=== PATIENT | male | born 1960 ===

== ENCOUNTER 2017-12-14 00:55 | Inpatient (IN) ==
[2017-12-14] MEDS ORDERED: hydrALAZINE 20 MG/1 ML VIAL IV ONE (01:47)
[2017-12-14] MEDS ORDERED: ONDANSETRON 4 MG/2 ML VIAL IV PRN (02:23)
[2017-12-14] MEDS ORDERED: DEXTROSE 50% 25 GM/50 ML VIAL IV PRN (02:23)
[2017-12-14] MEDS ORDERED: GLUCAGON 1 MG VIAL IM PRN (02:23)
[2017-12-14] MEDS ORDERED: CALCIUM GLUCONATE 2,000 MG in SODIUM CHLORIDE 0.9% 100 ML IV ONE (03:00)
[2017-12-14 03:23] LABS: Basophils # 0.1 10*3/uL (0.0-0.2); Basophils % 1.1 % (0.0-0.8); Eosinophils # 0.4 10*3/uL (0.0-0.87); Eosinophils % 4.9 % (0.00-10.9); Hematocrit 31.9 VOL% (42.0-52.0); Hemoglobin 10.7 GM/DL (14.0-18.0); Immature Granulocytes % 0.3 %; Immature Granulocytes Absolute 0.02 #; Lymphocytes # 3.3 10*3/uL (1.4-4.0); Lymphocytes % 42.2 % (21.2-54.2); Mean Corpuscular HGB Conc 33.5 GM/DL (32-36); Mean Corpuscular Hemoglobin 28 PG (27-34); Mean Corpuscular Volume 82.6 FL (87-102); Monocytes # 0.5 10*3/uL (0.11-0.8); Monocytes % 5.9 % (1.7-12.7); Neutrophils # 3.6 10*3/uL (1.4-7.4); Neutrophils % 45.6 % (38.7-73.9); Platelet Count 380 T/CUMM (130-400); Red Blood Count 3.86 MC/CUMM (3.8-5.5); Red Cell Distribution Width 14.2 % (9.3-17.3); White Blood Count 7.9 T/CUMM (4-12)
[2017-12-14] MEDS: LACTATED RINGERS 1,000 ML IV SCH ×2 (03:33→21:35)
[2017-12-14 03:46] LABS: Alanine Aminotransferase 13 U/L (16-61); Albumin 1.8 G/DL (3.4-5.0); Alkaline Phosphatase 134 U/L (45-117); Aspartate Amino Transferase 17 U/L (0-37); Bilirubin,Total < 0.39 MG/DL (0.2-1.0); Blood Urea Nitrogen 24 MG/DL (7-18); Calcium 5.9 MG/DL (8.5-10.1); Cholesterol 91 MG/DL (50-200); Glucose 165 MG/DL (74-106); HDL Cholesterol 28 MG/DL (40-60); Osmolality,Calculated 293.8 MOS/KG (273-304); Potassium 3.2 MMOL/L (3.5-5.1); Risk Ratio 3.25; Sodium 144 MMOL/L (136-145); Total Protein 4.9 G/DL (6.4-8.3); Triglycerides 92 MG/DL (2-150); VLDL CHOLESTEROL 18.4 MG/DL
[2017-12-14 03:48] LABS: Troponin I Only 0.028 NG/ML (0.00-0.045)
[2017-12-14 04:00] LABS: Apearance,Urine CLEAR (Clear); Bacteria,Urine Occasional /HPF (Few); Bilirubin,Urine Negative (Negative); Blood, Urine Small mg/dL (Negative); Glucose,Urine (UA) >=500 mg/dL (Negative); Hyaline Casts,Urine 2 /LPF (0-3); Ketones,Urine Negative (Negative); Nitrite,Urine Negative (Negative); Protein,Urine >=500 MG/DL; RBC,Urine 1 /HPF (0-4); Squamous Epithelial Cell,Urine Occasional /HPF (0-10); Urine Color Yellow (Yellow); Urine Specific Gravity 1.009 (1.001-1.035); Urine Urobilinogen < 2.0 EU/DL (0.2-1.0); WBC,Urine 2 /HPF (0-6)
[2017-12-14] MEDS ORDERED: ALBUMIN 25% 50 GM in PREMIX 1 EACH IV ONE (06:00)
[2017-12-14] MEDS: DOCUSATE SODIUM 100 MG CAPSULE PO SCH ×2 (08:56→21:33)
[2017-12-14] MEDS: PANTOPRAZOLE 40 MG TABLET PO SCH (08:56)
[2017-12-14] MEDS: POTASSIUM CHLORIDE 20 MEQ TABLET PO PRN ×2 (08:56→12:02)
[2017-12-14] MEDS: CARVEDILOL 25 MG TABLET PO SCH ×2 (08:57→21:33)
[2017-12-14] MEDS: INSULIN REGULAR 100 UNIT/ML SUBCUT SCH ×4 (08:57→21:52)
[2017-12-14] MEDS: ENOXAPARIN 30 MG/0.3 ML SYRINGE SUBCUT SCH (08:57)
[2017-12-14] MEDS ORDERED: DONEPEZIL 5 MG TABLET PO SCH (09:00)
[2017-12-14 10:14] LABS: Calcium 6.5 MG/DL (8.5-10.1); Osmolality,Calculated 290.8 MOS/KG (273-304); Potassium 3.5 MMOL/L (3.5-5.1)
[2017-12-14] MEDS ORDERED: MAGNESIUM SULF RIDER 2 GM in PREMIX 1 EACH IV ONE (11:09)
[2017-12-14] MEDS: MAGNESIUM SULF RIDER 2 GM in PREMIX 1 EACH IV ONE ×2 (14:44→15:49)
[2017-12-14] MEDS: DIVALPROEX ER 250 MG TABLET PO SCH (21:33)
[2017-12-15 05:41] LABS: Bilirubin,Total 0.6 MG/DL (0.2-1.0); Osmolality,Calculated 296.4 MOS/KG (273-304); Potassium 3.6 MMOL/L (3.5-5.1); Total Protein 4.9 G/DL (6.4-8.3)
[2017-12-15] MEDS: LACTATED RINGERS 1,000 ML IV SCH ×3 (07:37→17:54)
[2017-12-15] MEDS: INSULIN REGULAR 100 UNIT/ML SUBCUT SCH ×4 (07:48→22:37)
[2017-12-15] MEDS: PANTOPRAZOLE 40 MG TABLET PO SCH (08:08)
[2017-12-15] MEDS: DOCUSATE SODIUM 100 MG CAPSULE PO SCH ×2 (08:08→20:13)
[2017-12-15] MEDS: CARVEDILOL 25 MG TABLET PO SCH ×2 (08:08→20:13)
[2017-12-15] MEDS: ENOXAPARIN 30 MG/0.3 ML SYRINGE SUBCUT SCH (08:08)
[2017-12-15] MEDS: DIVALPROEX ER 250 MG TABLET PO SCH (20:13)
[2017-12-16] MEDS: LACTATED RINGERS 1,000 ML IV SCH ×2 (00:20→08:44)
[2017-12-16] MEDS: METOPROLOL TARTRATE 5 MG/5 ML VIAL IV SCH ×3 (06:01→17:31)
[2017-12-16 06:02] LABS: Potassium 3.8 MMOL/L (3.5-5.1)
[2017-12-16] MEDS: INSULIN REGULAR 100 UNIT/ML SUBCUT SCH ×4 (08:01→23:09)
[2017-12-16] MEDS: DOCUSATE SODIUM 100 MG CAPSULE PO SCH ×2 (09:30→23:08)
[2017-12-16] MEDS: ENOXAPARIN 30 MG/0.3 ML SYRINGE SUBCUT SCH (09:30)
[2017-12-16] MEDS: PANTOPRAZOLE 40 MG TABLET PO SCH (09:30)
[2017-12-16] MEDS: CARVEDILOL 25 MG TABLET PO SCH ×2 (09:30→23:08)
[2017-12-16] MEDS: DIVALPROEX ER 250 MG TABLET PO SCH (23:08)
[2017-12-16] MEDS: SIMVASTATIN 20 MG TABLET PO SCH (23:09)
[2017-12-17] MEDS: METOPROLOL TARTRATE 5 MG/5 ML VIAL IV SCH ×4 (00:49→18:41)
[2017-12-17 05:44] LABS: Calcium 6.2 MG/DL (8.5-10.1); Osmolality,Calculated 291.8 MOS/KG (273-304); Potassium 3.6 MMOL/L (3.5-5.1)
[2017-12-17] MEDS: INSULIN REGULAR 100 UNIT/ML SUBCUT SCH ×4 (07:28→21:31)
[2017-12-17] MEDS: DOCUSATE SODIUM 100 MG CAPSULE PO SCH ×2 (09:21→21:31)
[2017-12-17] MEDS: ENOXAPARIN 30 MG/0.3 ML SYRINGE SUBCUT SCH (09:21)
[2017-12-17] MEDS: CARVEDILOL 25 MG TABLET PO SCH ×2 (09:21→21:31)
[2017-12-17] MEDS: PANTOPRAZOLE 40 MG TABLET PO SCH (09:21)
[2017-12-17] MEDS: DIVALPROEX ER 250 MG TABLET PO SCH (21:31)
[2017-12-17] MEDS: SIMVASTATIN 20 MG TABLET PO SCH (21:32)
[2017-12-18] MEDS: METOPROLOL TARTRATE 5 MG/5 ML VIAL IV SCH ×3 (00:01→08:15)
[2017-12-18 06:02] LABS: Calcium 6.3 MG/DL (8.5-10.1); Osmolality,Calculated 292.7 MOS/KG (273-304); Potassium 3.9 MMOL/L (3.5-5.1)
[2017-12-18] MEDS: INSULIN REGULAR 100 UNIT/ML SUBCUT SCH ×4 (08:14→20:37)
[2017-12-18] MEDS: PANTOPRAZOLE 40 MG TABLET PO SCH (08:15)
[2017-12-18] MEDS: CARVEDILOL 25 MG TABLET PO SCH ×2 (08:15→20:37)
[2017-12-18] MEDS: ENOXAPARIN 30 MG/0.3 ML SYRINGE SUBCUT SCH (08:15)
[2017-12-18] MEDS: DOCUSATE SODIUM 100 MG CAPSULE PO SCH ×2 (08:15→20:37)
[2017-12-18 10:23] LABS: % Iron Saturation 42.9 % (18-50)
[2017-12-18 14:19] LABS: Creatinine,Urine Random 88 MG/DL; Total Protein,Urine Random 1103 MG/DL; Urea Nitrogen, Urine Random 407 MG/DL
[2017-12-18] MEDS: FAMOTIDINE 20 MG TABLET PO SCH (20:37)
[2017-12-18] MEDS: DIVALPROEX ER 250 MG TABLET PO SCH (20:37)
[2017-12-18] MEDS ORDERED: hydrALAZINE 25 MG TABLET PO ONE (23:30)
[2017-12-19] MEDS: INSULIN REGULAR 100 UNIT/ML SUBCUT SCH ×4 (07:52→20:49)
[2017-12-19] MEDS: ENOXAPARIN 30 MG/0.3 ML SYRINGE SUBCUT SCH (08:20)
[2017-12-19] MEDS: CARVEDILOL 25 MG TABLET PO SCH ×2 (08:20→20:26)
[2017-12-19] MEDS: DOCUSATE SODIUM 100 MG CAPSULE PO SCH ×2 (08:20→20:26)
[2017-12-19] MEDS: amLODIPine 10 MG TABLET PO SCH (16:08)
[2017-12-19] MEDS: FAMOTIDINE 20 MG TABLET PO SCH (20:26)
[2017-12-19] MEDS: DIVALPROEX ER 250 MG TABLET PO SCH (20:26)
[2017-12-20 06:10] LABS: Basophils # 0.1 10*3/uL (0.0-0.2); Basophils % 0.8 % (0.0-0.8); Eosinophils # 0.5 10*3/uL (0.0-0.87); Eosinophils % 6.7 % (0.00-10.9); Hematocrit 32.8 VOL% (42.0-52.0); Hemoglobin 11.1 GM/DL (14.0-18.0); Immature Granulocytes % 0.1 %; Immature Granulocytes Absolute 0.01 #; Lymphocytes # 2.5 10*3/uL (1.4-4.0); Lymphocytes % 33.1 % (21.2-54.2); Mean Corpuscular HGB Conc 33.8 GM/DL (32-36); Mean Corpuscular Hemoglobin 28 PG (27-34); Monocytes # 0.5 10*3/uL (0.11-0.8); Monocytes % 7.2 % (1.7-12.7); Neutrophils # 3.9 10*3/uL (1.4-7.4); Neutrophils % 52.1 % (38.7-73.9); Platelet Count 326 T/CUMM (130-400); Red Blood Count 3.95 MC/CUMM (3.8-5.5); Red Cell Distribution Width 14.2 % (9.3-17.3); White Blood Count 7.5 T/CUMM (4-12)
[2017-12-20 06:34] LABS: Calcium 6.4 MG/DL (8.5-10.1); Potassium 3.8 MMOL/L (3.5-5.1)
[2017-12-20] MEDS: INSULIN REGULAR 100 UNIT/ML SUBCUT SCH ×2 (09:17→11:49)
[2017-12-20] MEDS: ENOXAPARIN 30 MG/0.3 ML SYRINGE SUBCUT SCH (09:17)
[2017-12-20] MEDS: CARVEDILOL 25 MG TABLET PO SCH (09:17)
[2017-12-20] MEDS: DOCUSATE SODIUM 100 MG CAPSULE PO SCH (09:17)
[2017-12-20] MEDS: amLODIPine 10 MG TABLET PO SCH (09:17)
[2017-12-20] MEDS: POTASSIUM CHLORIDE 20 MEQ TABLET PO PRN (11:49)
[2017-12-20 11:50] VITALS: BP 140/76
[2017-12-20] MEDS ORDERED: CALCITRIOL 0.25 MCG CAPSULE PO SCH (12:00)
== END 2017-12-20 15:15 | disposition home health service (06) | DRG 682 ==
LOC: N.5E 00:57 → SUATTDRO 00:57
PROVIDERS: ADMIT Family Medicine; ATTEND Internal Medicine

== ENCOUNTER 2021-04-14 08:02 | Inpatient (IN) ==
[2021-04-14 08:44] LABS: Basophils # 0.1 10*3/uL (0.0-0.2); Basophils % 0.7 % (0.0-0.8); Eosinophils # 0.1 10*3/uL (0.0-0.87); Eosinophils % 0.6 % (0.00-10.9); Hemoglobin 9.3 GM/DL (14.0-18.0); Immature Granulocytes % 0.5 %; Immature Granulocytes Absolute 0.04 #; Lymphocytes # 1.3 10*3/uL (1.4-4.0); Lymphocytes % 15.9 % (21.2-54.2); Mean Platelet Volume 10.1 FL (9.6-12.0); Monocytes % 9.5 % (1.7-12.7); NRBC # 0.18 10*3/uL; Neutrophils % 72.8 % (38.7-73.9); Platelet Count 172 T/CUMM (130-400); Red Blood Count 2.97 MC/CUMM (3.8-5.5); Red Cell Distribution Width 17.5 % (9.3-17.3); White Blood Count 8.1 T/CUMM (4-12)
[2021-04-14 09:10] LABS: Albumin 3.1 G/DL (3.4-5.0); Bilirubin,Total 1.4 MG/DL (0.20-1.00); Osmolality,Calculated 277.2 MOS/KG (273-304); Potassium 3.6 MMOL/L (3.5-5.1); Total Protein 7.7 G/DL (6.4-8.2)
[2021-04-14] MEDS ORDERED: DEXTROSE 50% 25 GM/50 ML VIAL IV PRN ×2 (09:30)
[2021-04-14] MEDS ORDERED: ENOXAPARIN 30 MG/0.3 ML SYRINGE SUBCUT SCH (09:30)
[2021-04-14] MEDS ORDERED: ONDANSETRON 4 MG/2 ML VIAL IV PRN (09:30)
[2021-04-14] MEDS ORDERED: GLUCAGON 1 MG VIAL IM PRN ×2 (09:30)
[2021-04-14] MEDS: SODIUM CHLORIDE 0.9% 1,000 ML IV SCH (09:31)
[2021-04-14 09:33] LABS: Prolactin 48.2 ng/mL (2.1-17.7)
[2021-04-14 10:02] LABS: Hepatitis B Core IgM Quant 0.09 Index; Hepatitis B Surface Ag Quant < 0.10 Index; Hepatitis B Surface Ag Result Non-Reactive (NonReactive); Hepatitis C Virus Ab Quant 0.02 Index; Hepatitis C Virus Ab Result Non-Reactive (NonReactive)
[2021-04-14 10:06] LABS: Folate 16.41 NG/ML (5.38-24.0)
[2021-04-14] MEDS: HEPARIN 5,000 UNIT/1 ML VIAL SUBCUT SCH (10:09)
[2021-04-14 10:10] LABS: RPR Confirm - Less than 1 yr REACTIVE (Nonreactive)
[2021-04-14 10:39] LABS: Amorphous Crystals,Urine Occasional /HPF (Few); Bacteria,Urine Many /HPF (Few); Bilirubin,Urine Negative (Negative); Blood, Urine Small mg/dL (Negative); Glucose,Urine (UA) 50 mg/dL (Negative); Ketones,Urine Negative (Negative); Nitrite,Urine Negative (Negative); Protein,Urine >=500 MG/DL; Squamous Epithelial Cell,Urine Occasional /HPF (0-10); Urine Appearance CLOUDY (Clear); Urine Color Amber (Yellow); Urine Specific Gravity 1.019 (1.001-1.035); Urine Urobilinogen < 2.0 EU/DL (0.2-1.0)
[2021-04-14 10:42] LABS: Barbiturates Screen,Urine Negative (Negative); Benzodiazepines Screen,Urine Negative (Negative); Cannabinoid Screen,Urine Negative (Negative); Opiate Screen,Urine Negative (Negative); Phencyclidine Screen,Urine Negative (Negative)
[2021-04-14 11:25] LABS: Vitamin B12 > 2000 PG/ML (211-911)
[2021-04-14] MEDS: INSULIN LISPRO 100 UNIT/ML SUBCUT SCH ×3 (13:20→20:16)
[2021-04-14] MEDS: LACTULOSE 20 GM/30 ML UDCUP PO SCH (20:17)
[2021-04-14] MEDS: DIVALPROEX 500 MG TABLET PO SCH (20:17)
[2021-04-15] MEDS: SODIUM CHLORIDE 0.9% 1,000 ML IV SCH ×2 (06:46→16:25)
[2021-04-15 07:18] LABS: VLDL Cholesterol 29.2 MG/DL
[2021-04-15 07:20] LABS: Bilirubin,Total 1.5 MG/DL (0.20-1.00); Calcium 8.8 MG/DL (8.5-10.1); Osmolality,Calculated 280.5 MOS/KG (273-304); Total Protein 7.4 G/DL (6.4-8.2)
[2021-04-15] MEDS ORDERED: PANTOPRAZOLE 40 MG TABLET PO SCH (09:00)
[2021-04-15] MEDS: INSULIN LISPRO 100 UNIT/ML SUBCUT SCH ×3 (10:10→16:25)
[2021-04-15] MEDS: LACTULOSE 20 GM/30 ML UDCUP PO SCH (10:22)
[2021-04-15] MEDS: DIVALPROEX 500 MG TABLET PO SCH (10:22)
[2021-04-15] MEDS: HEPARIN 5,000 UNIT/1 ML VIAL SUBCUT SCH (10:22)
[2021-04-15 15:56] VITALS: BP 162/57
== END 2021-04-15 18:04 | disposition home health service (06) | DRG 100 ==
LOC: EDUNIT# → N.ED 08:02 → N.EDINP 09:07 → N.5E 10:42
PROVIDERS: ADMIT Internal Medicine; ATTEND Internal Medicine

== ENCOUNTER 2022-01-04 10:14 | Inpatient (IN) ==
[2022-01-04 10:45] LABS: Basophils % 0.4 % (0.0-0.8); Eosinophils # 0.1 10*3/uL (0.0-0.87); Eosinophils % 1.3 % (0.00-10.9); Hematocrit 24.8 VOL% (42.0-52.0); Hemoglobin 7.6 GM/DL (14.0-18.0); Immature Granulocytes % 0.9 %; Immature Granulocytes Absolute 0.09 #; Lymphocytes % 9.7 % (21.2-54.2); Mean Corpuscular HGB Conc 30.6 GM/DL (32-36); Mean Corpuscular Volume 93.6 FL (87-102); Monocytes # 1.1 10*3/uL (0.11-0.8); Monocytes % 10.9 % (1.7-12.7); Neutrophils % 76.8 % (38.7-73.9); Platelet Count 415 T/CUMM (130-400); Red Blood Count 2.65 MC/CUMM (3.8-5.5); Red Cell Distribution Width 18.5 % (9.3-17.3); White Blood Count 10.3 T/CUMM (4-12)
[2022-01-04 11:06] LABS: Alanine Aminotransferase < 9 U/L (16-61); Albumin 1.6 G/DL (3.4-5.0); Alkaline Phosphatase 118 U/L (45-117); Aspartate Amino Transferase 12 U/L (0-37); Bilirubin,Total < 0.39 MG/DL (0.20-1.00); Blood Urea Nitrogen 83 MG/DL (7-18); Calcium 9.3 MG/DL (8.5-10.1); Carbon Dioxide 28 MMOL/L (21-32); Chloride 96 MMOL/L (98-107); Estimated Glom Filtration Rate 8 ML/MIN; Glucose 97 MG/DL (74-106); Osmolality,Calculated 288.5 MOS/KG (273-304); Potassium 4.2 MMOL/L (3.5-5.1); Sodium 132 MMOL/L (136-145); Total Protein 7.9 G/DL (6.4-8.2)
[2022-01-04] MEDS ORDERED: ONDANSETRON 4 MG/2 ML VIAL IV PRN (12:31)
[2022-01-04] MEDS ORDERED: GLUCAGON 1 MG VIAL IM PRN (12:31)
[2022-01-04] MEDS ORDERED: hydrALAZINE 20 MG/1 ML VIAL IV PRN (12:31)
[2022-01-04] MEDS ORDERED: EPOETIN ALFA-EPBX 10,000 UNIT/ML VIAL SUBCUT SCH (12:45)
[2022-01-04] MEDS ORDERED: DEXTROSE 10% 250 ML BAG IV PRN (13:06)
[2022-01-04] MEDS ORDERED: VANCOMYCIN INJ 500 MG in SODIUM CHLORIDE 0.9% 250 ML IV PRN (14:17)
[2022-01-04] MEDS: PIPERACILLIN/TAZOBACTAM 3,375 MG in SODIUM CHLORIDE 0.9% 100 ML IV SCH (15:54)
[2022-01-04] MEDS: VANCOMYCIN INJ 1,750 MG in SODIUM CHLORIDE 0.9% 500 ML IV ONE ×2 (16:20→17:30)
[2022-01-04] MEDS ORDERED: VANCOMYCIN INJ 1,750 MG in SODIUM CHLORIDE 0.9% 500 ML IV ONE (17:00)
[2022-01-04] MEDS: INSULIN LISPRO 100 UNIT/ML SUBCUT SCH ×2 (17:33→22:28)
[2022-01-04] MEDS: carvediloL 6.25 MG TABLET PO SCH (17:34)
[2022-01-04] MEDS: SEVELAMER CARBONATE 800 MG TABLET PO SCH (17:34)
[2022-01-04] MEDS: VANCOMYCIN 125 MG CAPSULE PO SCH ×2 (17:34→22:47)
[2022-01-04] MEDS: DIVALPROEX 250 MG TABLET PO SCH (22:20)
[2022-01-04] MEDS: GABAPENTIN 100 MG CAPSULE PO SCH (22:20)
[2022-01-05] MEDS: VANCOMYCIN 50 MG/ML 60 ML/BOTTLE PO SCH ×5 (00:22→21:21)
[2022-01-05] MEDS: PIPERACILLIN/TAZOBACTAM 3,375 MG in SODIUM CHLORIDE 0.9% 100 ML IV SCH ×2 (02:57→17:30)
[2022-01-05 05:07] LABS: Basophils # 0.1 10*3/uL (0.0-0.2); Basophils % 0.5 % (0.0-0.8); Eosinophils # 0.1 10*3/uL (0.0-0.87); Eosinophils % 1.1 % (0.00-10.9); Hematocrit 25.3 VOL% (42.0-52.0); Hemoglobin 7.6 GM/DL (14.0-18.0); Immature Granulocytes % 0.7 %; Immature Granulocytes Absolute 0.07 #; Lymphocytes # 1.5 10*3/uL (1.4-4.0); Mean Corpuscular Volume 94.8 FL (87-102); Mean Platelet Volume 8.8 FL (9.6-12.0); Monocytes # 1.1 10*3/uL (0.11-0.8); Monocytes % 11.1 % (1.7-12.7); Neutrophils % 71.6 % (38.7-73.9); Platelet Count 402 T/CUMM (130-400); Red Blood Count 2.67 MC/CUMM (3.8-5.5); Red Cell Distribution Width 18.7 % (9.3-17.3); White Blood Count 9.7 T/CUMM (4-12)
[2022-01-05 05:36] LABS: Free T4 (Free Thyroxine) 1.06 NG/DL (0.76-1.46); Thyroid Stimulating Hormone 10.8 uIU/ml (0.358-3.74)
[2022-01-05 05:41] LABS: % Iron Saturation 15.7 % (18-50); Ferritin 3091.9 ng/mL (26-388)
[2022-01-05 05:46] LABS: Alanine Aminotransferase < 9 U/L (16-61); Albumin 1.5 G/DL (3.4-5.0); Alkaline Phosphatase 105 U/L (45-117); Aspartate Amino Transferase 12 U/L (0-37); Blood Urea Nitrogen 92 MG/DL (7-18); Calcium 8.5 MG/DL (8.5-10.1); Carbon Dioxide 21 MMOL/L (21-32); Chloride 101 MMOL/L (98-107); Estimated Glom Filtration Rate 7 ML/MIN; Glucose 77 MG/DL (74-106); Osmolality,Calculated 294.2 MOS/KG (273-304); Potassium 4.8 MMOL/L (3.5-5.1); Sodium 134 MMOL/L (136-145); Total Protein 7.6 G/DL (6.4-8.2)
[2022-01-05] MEDS: PANTOPRAZOLE 40 MG TABLET PO SCH (10:14)
[2022-01-05] MEDS: CLOPIDOGREL 75 MG TABLET PO SCH (10:14)
[2022-01-05] MEDS: ASPIRIN EC 81 MG TABLET PO SCH (10:14)
[2022-01-05] MEDS: MULTIVITAMIN (BEROCCA) TABLET PO SCH (10:14)
[2022-01-05] MEDS: carvediloL 6.25 MG TABLET PO SCH ×2 (10:15→17:42)
[2022-01-05] MEDS: SEVELAMER CARBONATE 800 MG TABLET PO SCH ×3 (10:17→17:42)
[2022-01-05] MEDS: INSULIN LISPRO 100 UNIT/ML SUBCUT SCH ×4 (11:22→22:41)
[2022-01-05] MEDS: DIVALPROEX 250 MG TABLET PO SCH ×2 (11:46→21:21)
[2022-01-05] MEDS: ATORVASTATIN 40 MG TABLET PO SCH (11:46)
[2022-01-05] MEDS ORDERED: VANCOMYCIN INJ 500 MG in SODIUM CHLORIDE 0.9% 250 ML IV ONE (12:30)
[2022-01-05] MEDS: MENTHOL/ZINC OXIDE OINT 71 GM JAR TOP SCH ×2 (17:30→21:20)
[2022-01-05] MEDS ORDERED: VANCOMYCIN INJ 500 MG in SODIUM CHLORIDE 0.9% 100 ML IV ONE (20:00)
[2022-01-05] MEDS: GABAPENTIN 100 MG CAPSULE PO SCH (21:20)
[2022-01-06] MEDS: PIPERACILLIN/TAZOBACTAM 3,375 MG in SODIUM CHLORIDE 0.9% 100 ML IV SCH ×2 (01:38→16:14)
[2022-01-06 06:17] LABS: Basophils % 0.3 % (0.0-0.8); Eosinophils # 0.1 10*3/uL (0.0-0.87); Eosinophils % 1.2 % (0.00-10.9); Hematocrit 23.5 VOL% (42.0-52.0); Hemoglobin 7.2 GM/DL (14.0-18.0); Immature Granulocytes % 0.9 %; Immature Granulocytes Absolute 0.09 #; Lymphocytes # 1.2 10*3/uL (1.4-4.0); Lymphocytes % 11.5 % (21.2-54.2); Mean Corpuscular HGB Conc 30.6 GM/DL (32-36); Mean Corpuscular Volume 94.8 FL (87-102); Mean Platelet Volume 8.6 FL (9.6-12.0); Monocytes # 1.2 10*3/uL (0.11-0.8); Neutrophils % 75.1 % (38.7-73.9); Platelet Count 378 T/CUMM (130-400); Red Blood Count 2.48 MC/CUMM (3.8-5.5); Red Cell Distribution Width 18.7 % (9.3-17.3); White Blood Count 10.4 T/CUMM (4-12)
[2022-01-06 06:32] LABS: Calcium 8.1 MG/DL (8.5-10.1); Potassium 4.2 MMOL/L (3.5-5.1)
[2022-01-06] MEDS ORDERED: CLINDAMYCIN INJ 900 MG/50 ML PREMIX IV ONE (10:09)
[2022-01-06] MEDS: INSULIN LISPRO 100 UNIT/ML SUBCUT SCH ×4 (10:23→20:24)
[2022-01-06] MEDS: ASPIRIN EC 81 MG TABLET PO SCH (10:26)
[2022-01-06] MEDS: MULTIVITAMIN (BEROCCA) TABLET PO SCH (10:26)
[2022-01-06] MEDS: SEVELAMER CARBONATE 800 MG TABLET PO SCH ×3 (10:26→17:24)
[2022-01-06] MEDS: carvediloL 6.25 MG TABLET PO SCH ×2 (10:26→17:24)
[2022-01-06] MEDS: VANCOMYCIN 50 MG/ML 60 ML/BOTTLE PO SCH ×4 (10:27→20:49)
[2022-01-06] MEDS: ATORVASTATIN 40 MG TABLET PO SCH (10:27)
[2022-01-06] MEDS: PANTOPRAZOLE 40 MG TABLET PO SCH (10:27)
[2022-01-06] MEDS: DIVALPROEX 250 MG TABLET PO SCH ×2 (10:27→20:50)
[2022-01-06] MEDS: CLOPIDOGREL 75 MG TABLET PO SCH (10:27)
[2022-01-06] MEDS ORDERED: fentaNYL 100 MCG/2 ML VIAL ONE (11:15)
[2022-01-06] MEDS ORDERED: SODIUM CHLORIDE 0.9% 250 ML IV SCH (11:30)
[2022-01-06] MEDS ORDERED: propofoL 200 MG/20 ML VIAL IV ONE (11:41)
[2022-01-06] MEDS ORDERED: LIDOCAINE 2% 5 ML VIAL ONE (11:41)
[2022-01-06] MEDS: MENTHOL/ZINC OXIDE OINT 71 GM JAR TOP SCH ×2 (16:13→20:49)
[2022-01-06] MEDS: GABAPENTIN 100 MG CAPSULE PO SCH (20:50)
[2022-01-07] MEDS: PIPERACILLIN/TAZOBACTAM 3,375 MG in SODIUM CHLORIDE 0.9% 100 ML IV SCH ×2 (01:51→14:58)
[2022-01-07 06:10] LABS: Basophils % 0.4 % (0.0-0.8); Eosinophils # 0.1 10*3/uL (0.0-0.87); Eosinophils % 1.3 % (0.00-10.9); Hematocrit 24.5 VOL% (42.0-52.0); Hemoglobin 7.6 GM/DL (14.0-18.0); Immature Granulocytes % 0.6 %; Immature Granulocytes Absolute 0.06 #; Lymphocytes # 1.3 10*3/uL (1.4-4.0); Lymphocytes % 13.7 % (21.2-54.2); Mean Corpuscular Volume 96.1 FL (87-102); Mean Platelet Volume 8.8 FL (9.6-12.0); Monocytes % 10.6 % (1.7-12.7); Neutrophils % 73.4 % (38.7-73.9); Platelet Count 380 T/CUMM (130-400); Red Blood Count 2.55 MC/CUMM (3.8-5.5); White Blood Count 9.4 T/CUMM (4-12)
[2022-01-07 06:25] LABS: Calcium 8.4 MG/DL (8.5-10.1); Osmolality,Calculated 288.8 MOS/KG (273-304); Potassium 4.4 MMOL/L (3.5-5.1)
[2022-01-07] MEDS: INSULIN LISPRO 100 UNIT/ML SUBCUT SCH ×4 (08:12→22:02)
[2022-01-07] MEDS ORDERED: GLUCAGON 1 MG VIAL IM PRN (12:49)
[2022-01-07] MEDS ORDERED: DEXTROSE 10% 250 ML BAG IV PRN (12:51)
[2022-01-07] MEDS: PANTOPRAZOLE 40 MG TABLET PO SCH (14:52)
[2022-01-07] MEDS: ATORVASTATIN 40 MG TABLET PO SCH (14:52)
[2022-01-07] MEDS: carvediloL 6.25 MG TABLET PO SCH ×2 (14:52→16:57)
[2022-01-07] MEDS: DIVALPROEX 250 MG TABLET PO SCH ×2 (14:52→21:24)
[2022-01-07] MEDS: ASPIRIN EC 81 MG TABLET PO SCH (14:52)
[2022-01-07] MEDS: CLOPIDOGREL 75 MG TABLET PO SCH (14:52)
[2022-01-07] MEDS: MULTIVITAMIN (BEROCCA) TABLET PO SCH (14:52)
[2022-01-07] MEDS: SEVELAMER CARBONATE 800 MG TABLET PO SCH ×3 (14:52→16:57)
[2022-01-07] MEDS: VANCOMYCIN 50 MG/ML 60 ML/BOTTLE PO SCH ×2 (14:53→18:51)
[2022-01-07] MEDS: MENTHOL/ZINC OXIDE OINT 71 GM JAR TOP SCH ×2 (15:12→21:25)
[2022-01-07] MEDS: VANCOMYCIN 125 MG CAPSULE PO SCH ×2 (16:57→21:24)
[2022-01-07] MEDS ORDERED: VANCOMYCIN INJ 500 MG in SODIUM CHLORIDE 0.9% 250 ML IV ONE (17:00)
[2022-01-07] MEDS: SODIUM HYPOCHLORITE 0.25% IRRIG 473 ML BOTTLE TOP SCH (17:03)
[2022-01-07] MEDS: ACETAMINOPHEN 325 MG TABLET PO PRN (21:24)
[2022-01-07] MEDS: GABAPENTIN 100 MG CAPSULE PO SCH (21:24)
[2022-01-07] MEDS: MELATONIN 3 MG TABLET PO PRN (21:24)
[2022-01-08] MEDS: LOPERAMIDE 2 MG CAPSULE PO PRN ×2 (02:30→08:45)
[2022-01-08] MEDS: PIPERACILLIN/TAZOBACTAM 3,375 MG in SODIUM CHLORIDE 0.9% 100 ML IV SCH ×2 (02:30→14:05)
[2022-01-08 05:49] LABS: Osmolality,Calculated 279.8 MOS/KG (273-304); Potassium 4.1 MMOL/L (3.5-5.1)
[2022-01-08 06:21] LABS: Basophils # 0.1 10*3/uL (0.0-0.2); Basophils % 0.7 % (0.0-0.8); Eosinophils # 0.2 10*3/uL (0.0-0.87); Eosinophils % 1.4 % (0.00-10.9); Hematocrit 23.7 VOL% (42.0-52.0); Immature Granulocytes % 0.9 %; Lymphocytes # 1.5 10*3/uL (1.4-4.0); Mean Corpuscular HGB Conc 33.8 GM/DL (32-36); Mean Corpuscular Volume 101.7 FL (87-102); Mean Platelet Volume 8.8 FL (9.6-12.0); Monocytes # 1.2 10*3/uL (0.11-0.8); Monocytes % 10.9 % (1.7-12.7); Neutrophils % 73.1 % (38.7-73.9); Platelet Count 401 T/CUMM (130-400); Red Blood Count 2.33 MC/CUMM (3.8-5.5); Red Cell Distribution Width 22.7 % (9.3-17.3); White Blood Count 11.2 T/CUMM (4-12)
[2022-01-08 06:26] LABS: Hypochromia Slight; Platelet Estimate Normal
[2022-01-08] MEDS: INSULIN LISPRO 100 UNIT/ML SUBCUT SCH ×4 (08:33→20:16)
[2022-01-08] MEDS: ASPIRIN EC 81 MG TABLET PO SCH (08:45)
[2022-01-08] MEDS: DIVALPROEX 250 MG TABLET PO SCH ×2 (08:45→21:09)
[2022-01-08] MEDS: MULTIVITAMIN (BEROCCA) TABLET PO SCH (08:45)
[2022-01-08] MEDS: SEVELAMER CARBONATE 800 MG TABLET PO SCH ×3 (08:45→16:21)
[2022-01-08] MEDS: CLOPIDOGREL 75 MG TABLET PO SCH (08:45)
[2022-01-08] MEDS: VANCOMYCIN 125 MG CAPSULE PO SCH ×4 (08:45→21:09)
[2022-01-08] MEDS: ATORVASTATIN 40 MG TABLET PO SCH (08:46)
[2022-01-08] MEDS: PANTOPRAZOLE 40 MG TABLET PO SCH (08:46)
[2022-01-08] MEDS: MENTHOL/ZINC OXIDE OINT 71 GM JAR TOP SCH ×2 (08:46→21:09)
[2022-01-08] MEDS: carvediloL 6.25 MG TABLET PO SCH ×2 (08:46→16:21)
[2022-01-08] MEDS: SODIUM HYPOCHLORITE 0.25% IRRIG 473 ML BOTTLE TOP SCH (08:46)
[2022-01-08] MEDS: MELATONIN 3 MG TABLET PO PRN (21:09)
[2022-01-08] MEDS: GABAPENTIN 100 MG CAPSULE PO SCH (21:09)
[2022-01-09] MEDS: PIPERACILLIN/TAZOBACTAM 3,375 MG in SODIUM CHLORIDE 0.9% 100 ML IV SCH ×2 (01:50→21:13)
[2022-01-09 05:30] LABS: Basophils % 0.4 % (0.0-0.8); Eosinophils # 0.1 10*3/uL (0.0-0.87); Eosinophils % 1.4 % (0.00-10.9); Hematocrit 18.4 VOL% (42.0-52.0); Immature Granulocytes % 0.5 %; Immature Granulocytes Absolute 0.05 #; Lymphocytes # 0.9 10*3/uL (1.4-4.0); Lymphocytes % 9.9 % (21.2-54.2); Mean Corpuscular HGB Conc 40.2 GM/DL (32-36); Mean Corpuscular Volume 104.5 FL (87-102); Mean Platelet Volume 8.8 FL (9.6-12.0); Monocytes # 0.7 10*3/uL (0.11-0.8); Monocytes % 7.4 % (1.7-12.7); Neutrophils % 80.4 % (38.7-73.9); Platelet Count 380 T/CUMM (130-400); Red Cell Distribution Width 23.9 % (9.3-17.3); White Blood Count 9.5 T/CUMM (4-12)
[2022-01-09 05:31] LABS: Red Blood Count 1.76 MC/CUMM (3.8-5.5)
[2022-01-09 05:32] LABS: Hemoglobin 7.4 GM/DL (14.0-18.0)
[2022-01-09 05:47] LABS: Alanine Aminotransferase < 9 U/L (16-61); Albumin 1.5 G/DL (3.4-5.0); Alkaline Phosphatase 82 U/L (45-117); Aspartate Amino Transferase 11 U/L (0-37); Blood Urea Nitrogen 40 MG/DL (7-18); Calcium 8.1 MG/DL (8.5-10.1); Carbon Dioxide 26 MMOL/L (21-32); Chloride 101 MMOL/L (98-107); Glucose 99 MG/DL (74-106); Potassium 4.3 MMOL/L (3.5-5.1); Sodium 136 MMOL/L (136-145); Total Protein 7.7 G/DL (6.4-8.2)
[2022-01-09 06:00] LABS: Macrocytosis 1+
[2022-01-09 06:01] LABS: Hypochromia Slight; Polychromasia Slight
[2022-01-09 06:02] LABS: Platelet Estimate Normal
[2022-01-09] MEDS: INSULIN LISPRO 100 UNIT/ML SUBCUT SCH ×4 (08:03→21:50)
[2022-01-09] MEDS: MULTIVITAMIN (BEROCCA) TABLET PO SCH (09:13)
[2022-01-09] MEDS: SEVELAMER CARBONATE 800 MG TABLET PO SCH ×3 (09:13→17:07)
[2022-01-09] MEDS: ASPIRIN EC 81 MG TABLET PO SCH (09:14)
[2022-01-09] MEDS: DIVALPROEX 250 MG TABLET PO SCH ×2 (09:14→21:11)
[2022-01-09] MEDS: MENTHOL/ZINC OXIDE OINT 71 GM JAR TOP SCH ×2 (09:14→21:50)
[2022-01-09] MEDS: VANCOMYCIN 125 MG CAPSULE PO SCH ×4 (09:14→21:11)
[2022-01-09] MEDS: PANTOPRAZOLE 40 MG TABLET PO SCH (09:14)
[2022-01-09] MEDS: SODIUM HYPOCHLORITE 0.25% IRRIG 473 ML BOTTLE TOP SCH (09:14)
[2022-01-09] MEDS: ATORVASTATIN 40 MG TABLET PO SCH (09:14)
[2022-01-09] MEDS: CLOPIDOGREL 75 MG TABLET PO SCH (09:14)
[2022-01-09] MEDS: carvediloL 6.25 MG TABLET PO SCH ×2 (09:14→17:07)
[2022-01-09] MEDS ORDERED: SODIUM CHLORIDE 0.9% 1,000 ML IV PRN (10:26)
[2022-01-09] MEDS: GABAPENTIN 100 MG CAPSULE PO SCH (21:11)
[2022-01-09] MEDS: ACETAMINOPHEN 325 MG TABLET PO PRN (21:12)
[2022-01-09] MEDS: MELATONIN 3 MG TABLET PO PRN (21:12)
[2022-01-10 05:55] LABS: Basophils # 0.1 10*3/uL (0.0-0.2); Basophils % 0.4 % (0.0-0.8); Eosinophils # 0.2 10*3/uL (0.0-0.87); Eosinophils % 1.5 % (0.00-10.9); Hematocrit 30.3 VOL% (42.0-52.0); Immature Granulocytes % 0.7 %; Immature Granulocytes Absolute 0.09 #; Lymphocytes # 1.6 10*3/uL (1.4-4.0); Lymphocytes % 11.9 % (21.2-54.2); Mean Corpuscular Volume 92.1 FL (87-102); Mean Platelet Volume 8.8 FL (9.6-12.0); Monocytes % 7.2 % (1.7-12.7); Neutrophils % 78.3 % (38.7-73.9); Platelet Count 393 T/CUMM (130-400); Red Cell Distribution Width 17.9 % (9.3-17.3); White Blood Count 13.7 T/CUMM (4-12)
[2022-01-10 06:02] LABS: Hemoglobin 9.4 GM/DL (14.0-18.0); Red Blood Count 3.29 MC/CUMM (3.8-5.5)
[2022-01-10 06:14] LABS: Osmolality,Calculated 279.2 MOS/KG (273-304); Potassium 4.8 MMOL/L (3.5-5.1)
[2022-01-10] MEDS: INSULIN LISPRO 100 UNIT/ML SUBCUT SCH ×4 (07:59→21:16)
[2022-01-10] MEDS ORDERED: fentaNYL 100 MCG/2 ML VIAL ONE (08:46)
[2022-01-10] MEDS ORDERED: MIDAZOLAM 2 MG/2 ML VIAL ONE (08:46)
[2022-01-10] MEDS ORDERED: propofoL 200 MG/20 ML VIAL IV ONE (08:46)
[2022-01-10] MEDS ORDERED: LIDOCAINE 2% 5 ML VIAL ONE (08:46)
[2022-01-10] MEDS ORDERED: KETAMINE 500 MG/10 ML VIAL ONE (09:21)
[2022-01-10] MEDS ORDERED: ePHEDrine 50 MG/ML VIAL ONE (09:22)
[2022-01-10] MEDS ORDERED: SODIUM CHLORIDE 0.9% 250 ML IV SCH (09:30)
[2022-01-10] MEDS ORDERED: EPINEPHrine 1 MG/10 ML SYRINGE ONE (09:53)
[2022-01-10] MEDS ORDERED: CALCIUM CHLORIDE 1,000 MG/10 ML VIAL IV ONE (10:28)
[2022-01-10] MEDS ORDERED: HYDROmorphone 1 MG/1 ML SYRINGE IV PRN (10:43)
[2022-01-10] MEDS: SEVELAMER CARBONATE 800 MG TABLET PO SCH ×3 (11:21→17:19)
[2022-01-10] MEDS: SODIUM HYPOCHLORITE 0.25% IRRIG 473 ML BOTTLE TOP SCH (11:22)
[2022-01-10] MEDS: MENTHOL/ZINC OXIDE OINT 71 GM JAR TOP SCH ×2 (11:22→21:22)
[2022-01-10] MEDS: ATORVASTATIN 40 MG TABLET PO SCH (11:22)
[2022-01-10] MEDS: MULTIVITAMIN (BEROCCA) TABLET PO SCH (11:22)
[2022-01-10] MEDS: VANCOMYCIN 125 MG CAPSULE PO SCH ×4 (11:22→21:15)
[2022-01-10] MEDS: PANTOPRAZOLE 40 MG TABLET PO SCH (11:22)
[2022-01-10] MEDS: CLOPIDOGREL 75 MG TABLET PO SCH (11:22)
[2022-01-10] MEDS: DIVALPROEX 250 MG TABLET PO SCH ×2 (11:22→21:15)
[2022-01-10] MEDS: carvediloL 6.25 MG TABLET PO SCH ×2 (11:23→17:19)
[2022-01-10] MEDS: ASPIRIN EC 81 MG TABLET PO SCH (11:23)
[2022-01-10] MEDS ORDERED: VANCOMYCIN INJ 500 MG in SODIUM CHLORIDE 0.9% 100 ML IV PRN (13:44)
[2022-01-10] MEDS: PIPERACILLIN/TAZOBACTAM 3,375 MG in SODIUM CHLORIDE 0.9% 100 ML IV SCH ×2 (15:40→21:15)
[2022-01-10] MEDS ORDERED: VANCOMYCIN INJ 500 MG in SODIUM CHLORIDE 0.9% 100 ML IV ONE (17:00)
[2022-01-10] MEDS ORDERED: VANCOMYCIN INJ 500 MG in SODIUM CHLORIDE 0.9% 250 ML IV ONE (17:00)
[2022-01-10] MEDS: GABAPENTIN 100 MG CAPSULE PO SCH ×2 (17:19→21:15)
[2022-01-11] MEDS: MULTIVITAMIN (BEROCCA) TABLET PO SCH (08:34)
[2022-01-11] MEDS: SEVELAMER CARBONATE 800 MG TABLET PO SCH ×3 (08:34→16:14)
[2022-01-11] MEDS: INSULIN LISPRO 100 UNIT/ML SUBCUT SCH ×4 (08:34→20:22)
[2022-01-11] MEDS: VANCOMYCIN 125 MG CAPSULE PO SCH ×4 (08:34→20:21)
[2022-01-11] MEDS: GABAPENTIN 100 MG CAPSULE PO SCH ×3 (08:34→20:21)
[2022-01-11] MEDS: ATORVASTATIN 40 MG TABLET PO SCH (08:34)
[2022-01-11] MEDS: carvediloL 6.25 MG TABLET PO SCH ×2 (08:34→16:14)
[2022-01-11] MEDS: DIVALPROEX 250 MG TABLET PO SCH ×2 (08:34→20:21)
[2022-01-11] MEDS: SODIUM HYPOCHLORITE 0.25% IRRIG 473 ML BOTTLE TOP SCH (08:35)
[2022-01-11] MEDS: PIPERACILLIN/TAZOBACTAM 3,375 MG in SODIUM CHLORIDE 0.9% 100 ML IV SCH ×2 (08:35→20:22)
[2022-01-11] MEDS: PANTOPRAZOLE 40 MG TABLET PO SCH (08:35)
[2022-01-11] MEDS: ASPIRIN EC 81 MG TABLET PO SCH (08:35)
[2022-01-11] MEDS: MENTHOL/ZINC OXIDE OINT 71 GM JAR TOP SCH ×2 (08:36→20:21)
[2022-01-11 08:40] LABS: Basophils # 0.1 10*3/uL (0.0-0.2); Basophils % 0.4 % (0.0-0.8); Eosinophils # 0.2 10*3/uL (0.0-0.87); Eosinophils % 1.8 % (0.00-10.9); Hematocrit 30.6 VOL% (42.0-52.0); Hemoglobin 9.4 GM/DL (14.0-18.0); Immature Granulocytes % 0.6 %; Immature Granulocytes Absolute 0.07 #; Lymphocytes # 1.3 10*3/uL (1.4-4.0); Lymphocytes % 11.7 % (21.2-54.2); Mean Corpuscular HGB Conc 30.7 GM/DL (32-36); Mean Corpuscular Volume 92.4 FL (87-102); Mean Platelet Volume 8.7 FL (9.6-12.0); Monocytes # 0.9 10*3/uL (0.11-0.8); Neutrophils % 77.5 % (38.7-73.9); Platelet Count 388 T/CUMM (130-400); Red Blood Count 3.31 MC/CUMM (3.8-5.5); Red Cell Distribution Width 17.8 % (9.3-17.3); White Blood Count 11.2 T/CUMM (4-12)
[2022-01-11 08:56] LABS: Calcium 8.1 MG/DL (8.5-10.1); Potassium 4.9 MMOL/L (3.5-5.1)
[2022-01-11] MEDS ORDERED: ZINC OXIDE PASTE 113 GM TUBE TOP PRN (14:48)
[2022-01-11 19:46] LABS: CDT Result Negative (Negative); CDT Specimen Source STOOL
[2022-01-12 05:56] LABS: Basophils # 0.1 10*3/uL (0.0-0.2); Basophils % 0.6 % (0.0-0.8); Eosinophils # 0.2 10*3/uL (0.0-0.87); Eosinophils % 1.9 % (0.00-10.9); Hematocrit 29.7 VOL% (42.0-52.0); Hemoglobin 9.3 GM/DL (14.0-18.0); Immature Granulocytes % 0.6 %; Immature Granulocytes Absolute 0.06 #; Lymphocytes # 1.6 10*3/uL (1.4-4.0); Mean Corpuscular HGB Conc 31.3 GM/DL (32-36); Mean Corpuscular Volume 96.4 FL (87-102); Mean Platelet Volume 8.9 FL (9.6-12.0); Monocytes # 0.8 10*3/uL (0.11-0.8); Monocytes % 8.8 % (1.7-12.7); Neutrophils % 71.1 % (38.7-73.9); Platelet Count 415 T/CUMM (130-400); Red Blood Count 3.08 MC/CUMM (3.8-5.5); Red Cell Distribution Width 18.6 % (9.3-17.3); White Blood Count 9.4 T/CUMM (4-12)
[2022-01-12 06:25] LABS: Calcium 8.5 MG/DL (8.5-10.1); Osmolality,Calculated 272.2 MOS/KG (273-304); Potassium 5.2 MMOL/L (3.5-5.1)
[2022-01-12] MEDS: SODIUM HYPOCHLORITE 0.25% IRRIG 473 ML BOTTLE TOP SCH (09:00)
[2022-01-12] MEDS: DIVALPROEX 250 MG TABLET PO SCH ×2 (12:43→21:05)
[2022-01-12] MEDS: VANCOMYCIN 125 MG CAPSULE PO SCH ×4 (12:44→21:05)
[2022-01-12] MEDS: ATORVASTATIN 40 MG TABLET PO SCH (12:44)
[2022-01-12] MEDS: SEVELAMER CARBONATE 800 MG TABLET PO SCH ×3 (12:44→17:02)
[2022-01-12] MEDS: GABAPENTIN 100 MG CAPSULE PO SCH ×3 (12:44→21:05)
[2022-01-12] MEDS: ASPIRIN EC 81 MG TABLET PO SCH (12:44)
[2022-01-12] MEDS: carvediloL 6.25 MG TABLET PO SCH ×2 (12:45→17:01)
[2022-01-12] MEDS: PIPERACILLIN/TAZOBACTAM 3,375 MG in SODIUM CHLORIDE 0.9% 100 ML IV SCH (12:45)
[2022-01-12] MEDS: MULTIVITAMIN (BEROCCA) TABLET PO SCH (12:45)
[2022-01-12] MEDS: PANTOPRAZOLE 40 MG TABLET PO SCH (12:45)
[2022-01-12] MEDS: MENTHOL/ZINC OXIDE OINT 71 GM JAR TOP SCH ×2 (12:47→21:05)
[2022-01-12] MEDS: INSULIN LISPRO 100 UNIT/ML SUBCUT SCH ×3 (13:36→20:15)
[2022-01-13] MEDS: INSULIN LISPRO 100 UNIT/ML SUBCUT SCH ×2 (09:39→12:15)
[2022-01-13] MEDS: SODIUM HYPOCHLORITE 0.25% IRRIG 473 ML BOTTLE TOP SCH (09:41)
[2022-01-13] MEDS: VANCOMYCIN 125 MG CAPSULE PO SCH ×2 (09:47→12:20)
[2022-01-13] MEDS: GABAPENTIN 100 MG CAPSULE PO SCH (09:47)
[2022-01-13] MEDS: SEVELAMER CARBONATE 800 MG TABLET PO SCH ×2 (09:47→12:20)
[2022-01-13] MEDS: ATORVASTATIN 40 MG TABLET PO SCH (09:48)
[2022-01-13] MEDS: carvediloL 6.25 MG TABLET PO SCH (09:48)
[2022-01-13] MEDS: DIVALPROEX 250 MG TABLET PO SCH (09:48)
[2022-01-13] MEDS: ASPIRIN EC 81 MG TABLET PO SCH (09:49)
[2022-01-13] MEDS: PANTOPRAZOLE 40 MG TABLET PO SCH (09:49)
[2022-01-13] MEDS: MULTIVITAMIN (BEROCCA) TABLET PO SCH (09:49)
[2022-01-13] MEDS: MENTHOL/ZINC OXIDE OINT 71 GM JAR TOP SCH (09:49)
[2022-01-13 12:49] VITALS: BP 155/56
== END 2022-01-13 13:58 | DRG 239 ==
LOC: EDBD → EDUNIT# → N.ED 10:14 → N.EDINP 12:31 → SUATTDRO 12:31 → N.3E 14:25
PROVIDERS: ADMIT Internal Medicine; ATTEND Internal Medicine